=== PATIENT | male | born 1955 | race Caucasian/White ===

== ENCOUNTER 2019-03-05 10:57 | Day surgery (SDC) | payer OTHER ==
[~2019-03-05] VITALS: Ht 182.9 cm; Wt 131.5 kg
[~2019-03-05 10:57] MED LIST: AMOX875 PO; ASCO500 PO; ASPI325 PO; ASPI81CH PO; ATEN50 PO; Flecainide Acet50 MG PO; HYDURE500 PO; IBUP800 PO; LISI5 PO; METO50ER PO; OXYACE5T PO; VIT1CAPS12 PO
--- NOTE | 2019-03-05 12:30 | NUR ---
Ambulatory in Day Surgery History, Chart, Medications and Allergies reviewed before start of procedure.Lungs clear T/O to Auscultation. Patient confirms NPO status and agrees with scheduled surgery. Patient reports completing Chlorhexadine shower X2 prior to admission to hospital.Surgical site prepped with 2% Chlorhexidine cloth wipe.NOSYN AND PERIDEX DONE PER ORTHO PROTOCOL.
--- NOTE | 2019-03-05 18:14 | NUR ---
SUMMARY FAMILY AT BEDSIDE, PT CHEERFUL AND TALKATIVE. CURRENTLY REPORTS NUMBNESS AND DULLED SENSATION FROM MID THIGH DOWN. GROSS MOVEMENT OF BILAT LEGS. PT DENIES ANY PAIN. TAKING FLUID WITHOUT NAUSEA. LEFT KNEE DRESSING DRY AND INTACT. POLAR PACK IN PLACE
--- NOTE | 2019-03-06 04:10 | NUR ---
SHIFT SUMMARY PT A/O X4. HAS BEEN RESTING IN BED THIS SHIFT BUT DID SIT ON SIDE OF BED AND USE URINAL. PAIN MANAGED WITH PO PAIN MED PER ORDERS. TOLERATING PO INTAKE. AQUACEL TO L KNEE CDI. ASSISTED WITH ADL'S PRN.
[2019-03-06 05:02] LABS: BASOPHILS ABSOLUTE AUTO 0.01 K/mm3 (0.00-0.23); BASOPHILS PERCENT AUTO 0 % (0-2); EOSINOPHILS PERCENT AUTO 0 % (0-6); Hemoglobin 14.7 g/dL (13.5-17.5); IMMATURE GRAN ABSOLUTE AUTO 0.05 K/mm3 (0.00-0.10); IMMATURE GRAN PERCENT AUTO 0 % (0-1); LYMPHOCYTES ABSOLUTE AUTO 0.67 K/mm3 (0.84-5.20); LYMPHOCYTES PERCENT AUTO 6 % (21-46); MONOCYTES ABSOLUTE AUTO 0.88 K/mm3 (0.16-1.47); MONOCYTES PERCENT AUTO 8 % (4-13); Mean Corpuscular HGB 40.3 pg (26.0-34.0); Mean Corpuscular Volume 115 fL (80-100); Mean Platelet Volume 8.7 fL (9.1-12.4); NEUTROPHILS ABSOLUTE AUTO 9.58 K/mm3 (1.96-9.15); NEUTROPHILS PERCENT AUTO 86 % (41-73); Platelet Count 278 K/mm3 (150-400); RDW Coefficient Variation 12.1 % (11.7-14.2); Red Blood Cell Count 3.65 M/mm3 (4.30-5.90); White Blood Cell Count 11.19 K/mm3 (4.00-11.30)
[2019-03-06 05:29] LABS: Anion Gap 6 mmol/L (6-16); Blood Urea Nitrogen 21 mg/dL (8-24); CO2, Blood 26 mmol/L (21-32); Calcium, Blood 8.5 mg/dL (8.5-10.1); Chloride, Blood 107 mmol/L (98-108); Creatinine, Blood 0.75 mg/dL (0.60-1.20); Glomerular Filtration Rate >60 (60-); Glucose, Blood 125 mg/dL (70-99); Magnesium, Blood 1.9 mg/dL (1.6-2.4); Potassium, Blood 4.6 mmol/L (3.5-5.5); Sodium, Blood 139 mmol/L (136-145)
--- NOTE | 2019-03-06 06:13 | NUR ---
PT UP TO CHAIR AFTER SHORT WALK WITH MECHANICAL LABORATORY TECHNICIAN. REPORTS NO PAIN AT THIS TIME.
[2019-03-06] MEDS ORDERED: C Complex1000 MG PO (12:53)
[2019-03-06] MEDS ORDERED: ACET500 PO (12:54)
[2019-03-06] MEDS ORDERED: ASPI81CH PO (12:54)
[2019-03-06] MEDS ORDERED: OXYC5 PO (12:55)
--- NOTE | 2019-03-06 14:51 | NUR ---
DISCHARGE SUMMARY PT A&OX4, VSS, LEFT FLOOR VIA WC, WITH ALL PERSONAL POSSESSIONS INCLUDING DISCHARGE PACKET, 1 NARC SCRIPT, POLAR MIL, 2 AQACEL DRESSINGS, TO GO HOME WITH . DC INSTRUCTIONS PROVIDED. PT AND REP UNDERSTANDING THOSE INSTRUCTIONS. IV DC'D.
== END 2019-03-06 15:00 | disposition home or self-care (01) ==
LOC: ORSCMMR 10:57 → ORD 12:30 → ORSCMMR 17:31 → SURS 17:31 → ORSCMMR 03-06 15:00 → SURS 03-06 15:00
PROVIDERS: Orthopaedic Surgery
PROC: 0SRD0J9 Replacement of Left Knee Joint with Synthetic Substitute, Cemented, Open Approach (ICD-10-PCS; principal; 2019-03-05 13:45)
DX: M17.12 Unilateral primary osteoarthritis, left knee (principal); I10 Essential (primary) hypertension; K21.9 Gastro-esophageal reflux disease without esophagitis; I48.91 Unspecified atrial fibrillation; Z79.899 Other long term (current) drug therapy; Z79.82 Long term (current) use of aspirin; Z23 Encounter for immunization
CPT/HCPCS: 36415; 73560-LT; 80048; 83735; 85025; 88300; 90686; 97110; 97116; 97162; C1713; C1776; J0171; J0690; J0735; J1100; J1885; J2250; J2405; J2704; J2795; J3010; J7120

== ENCOUNTER 2022-01-03 06:48 | Day surgery (SDC) | payer OTHER ==
[~2022-01-03] VITALS: Ht 190.5 cm; Wt 141.0 kg
[~2022-01-03 06:48] MED LIST changes: +ACET500 PO; +Acerola C500 MG PO; +C Complex1000 MG PO; +NITR.4SL SL; +OXYC5 PO; +Tambocor100 MG PO
[2022-01-03] MEDS ORDERED: LOSA50 PO (07:25)
[2022-01-03] MEDS ORDERED: IBUP200 PO (07:26)
[2022-01-03] MEDS ORDERED: Lopressor 25 mg25 MG PO (07:26)
--- NOTE | 2022-01-03 10:05 | NUR ---
ASSUMED CARE OF PT. PT AWAKE AND CONVERSING APPROPRIATELY; DENIES CHEST PAIN POST PROCEDURE. MONITOR SB 50'S, B/P 133/87, SPO2 94 RA, AFEBRILE. R RADIAL NO SWELLING/HEMATOMA, TR BAND PLACE; RUE POSITIVE PLEUTH POST TR BAND PLACEMENT. R GROIN NO SWELLING/HEMATOMA, TEGADERM DRSG INTACT; RLE PULSES DP 2+, PT 1+. PT'S AT BEDSIDE, ATTENTIVE.
--- NOTE | 2022-01-03 10:35 | NUR ---
PT HOB ELEVATED, SITE UNCHANGED.
--- NOTE | 2022-01-03 11:35 | NUR ---
EHCO HERE TO PERFORM PT'S ECHOCARDIOGRAM.
--- NOTE | 2022-01-03 13:05 | NUR ---
PT AMB TO BATHROM, GAIT STEADY; SITES UNCHANGED WITH ACTIVITY.
--- NOTE | 2022-01-03 13:10 | NUR ---
PT DRESSED SELF WITHOUT ISSUE, SITES UNCHANGED; TR BAND REMOVED, CLOTH DOT AND WRIST IMMOBILIZER PLACED-IV REMOVED-CANNULA INTACT.
--- NOTE | 2022-01-03 13:19 | NUR ---
PT AND RECEIVED DISCHARGE INSTRUCTIONS, MED LIST AND AFTER CARE INSTRUCTIONS; VERBALIZED GOOD UNDERSTANDING. PT LEFT FACILITY VIA W/C, CONDITION STABLE.
== END 2022-01-03 13:19 | disposition home or self-care (01) ==
LOC: MHTC 06:48
DX: I20.8 Other forms of angina pectoris (principal); R94.39 Abnormal result of other cardiovascular function study; R06.00 Dyspnea, unspecified; R61 Generalized hyperhidrosis; I10 Essential (primary) hypertension; I48.0 Paroxysmal atrial fibrillation; G47.33 Obstructive sleep apnea (adult) (pediatric); K21.9 Gastro-esophageal reflux disease without esophagitis; E66.9 Obesity, unspecified; Z79.82 Long term (current) use of aspirin; Z68.38 Body mass index [BMI] 38.0-38.9, adult
CPT/HCPCS: 93306; 93454; 99152; 99153; C1760; C1769; C1887; C1894; J1644; J2250; J3010; J7030; J7040; J7050; Q9967

== ENCOUNTER 2024-07-16 06:42 | Day surgery (SDC) | payer OTHER ==
[~2024-07-16] VITALS: Ht 184 cm; Wt 134.0 kg
[~2024-07-16 06:42] MED LIST changes: -ACET500 PO; -Acerola C500 MG PO; +Acetaminophen650 M1 PO; +C COMPLEX1000 M1 PO; +ELIQUIS5 M2 PO; +IBUP200 PO; +LOSA50 PO; +Lactated Ringer's 1,000 ML IV SCH; +Lopressor 25 mg25 MG PO
[2024-07-16] MEDS ORDERED: propofoL 20 ML IV ONE ×2 (07:52→07:53)
[2024-07-16 07:56] VITALS: BP 153/87
--- NOTE | 2024-07-16 08:01 | NUR ---
07/16/24 0801 Juan Diego Arango History, Chart, Medications and Allergies reviewed before start of procedure.MONITOR INTACT WITH CONTINUOUS PULSE OXIMETRY, CONTINUOUS END TITAL CO2, 3-LEAD EKG AND INTERMITTENT BLOOD PRESSURE.3-LEAD EKG REVIEWED WITH PHYSICIAN PRIOR TO START OF PROCEDURE.O2 VIA POM INTACT THROUGHOUT SEDATION/PROCEDURE.See Anesthesia record.
--- NOTE | 2024-07-16 08:02 | NUR ---
History, Chart, Medications and Allergies reviewed before start of procedure. Pre-Op teaching done. Pt verbalizes understanding. Patient States Post-Procedure ride home has been arranged.
[2024-07-16 08:45] VITALS: BP 125/86
--- NOTE | 2024-07-16 08:50 | NUR ---
REPORT RECEIVED FROM AVI HERNANDEZ. VSS. PT ON RA. PT A&OX4. PT ABLE TO REPOSITION SELF IN BED. PT REQUESTING PO FLUIDS AND TOLERATING THEM WELL. PT DENIES PAIN, NAUSEA OR OTHER DISCOMFORTS.
[2024-07-16 09:00] VITALS: BP 148/87
[2024-07-16] MEDS ORDERED: Lactated Ringer's 1,000 ML IV ONE (09:35)
== END 2024-07-16 09:10 | disposition home or self-care (01) ==
LOC: ORSCMMR 06:42 → ORD 08:00 → ORSCMMR 08:00
PROVIDERS: Internal Medicine Gastroenterology
PROC: 0DJD8ZZ Inspection of Lower Intestinal Tract, Via Natural or Artificial Opening Endoscopic (ICD-10-PCS; principal; 2024-07-16 08:00)
DX: Z12.11 Encounter for screening for malignant neoplasm of colon (principal); Z86.0101 Personal history of adenomatous and serrated colon polyps; I48.0 Paroxysmal atrial fibrillation; I10 Essential (primary) hypertension; G47.33 Obstructive sleep apnea (adult) (pediatric); E66.9 Obesity, unspecified; Z68.39 Body mass index [BMI] 39.0-39.9, adult; Z79.01 Long term (current) use of anticoagulants; Z79.899 Other long term (current) drug therapy
CPT/HCPCS: J2704; J7120

== ENCOUNTER 2025-02-16 09:50 | Day surgery (SDC) | payer OTHER ==
[~2025-02-16] VITALS: Ht 188 cm; Wt 135.1 kg
[~2025-02-16 09:50] MED LIST changes: -Lactated Ringer's 1,000 ML IV SCH; +Lidocaine 2%-Epineph 1:200000 20 ML SDV ONE
[2025-02-16] MEDS ORDERED: FLUT.05NI (10:43)
[2025-02-16] MEDS ORDERED: Phenylephrine HCl 100 MCG/ML-NS 10MLSYR (1MG/10ML) ONE (12:09)
[2025-02-16] MEDS ORDERED: Ondansetron HCl 2 MG / ML 2ML Vial ONE (12:09)
[2025-02-16] MEDS ORDERED: Rocuronium Bromide 10 MG/ML 5ML Injection IV ONE (12:09)
[2025-02-16] MEDS ORDERED: Dexamethasone Sod Phos 10 MG/ML 1ML VIAL ONE (12:09)
[2025-02-16] MEDS ORDERED: FentaNYL Citrate 50 MCG/ML 2 ML Injection ONE (12:11)
[2025-02-16] MEDS ORDERED: Glycopyrrolate 0.2 MG/ML 5ML VIAL ONE (12:34)
[2025-02-16] MEDS ORDERED: HYDROmorphone HCl/Pf 1MG SYR ONE (13:47)
[2025-02-16] MEDS ORDERED: Sugammadex Sodium 200 MG/2ML SDV (100 MG/ML) ONE (13:48)
[2025-02-16] MEDS ORDERED: Ketorolac Tromethamine 30mg Vial ONE (15:00)
--- NOTE | 2025-02-16 15:00 | NUR ---
02/16/25 Griselda Cantu REPORT GIVEN TO MARY SINGH
[2025-02-16 15:07] VITALS: BP 174/100
== END 2025-02-16 16:10 | disposition home or self-care (01) ==
LOC: ORSCSDS 09:50
PROVIDERS: Otolaryngology
PROC: 0GTK0ZZ Resection of Thyroid Gland, Open Approach (ICD-10-PCS; principal; 2025-02-16 11:30)
DX: E04.2 Nontoxic multinodular goiter (principal); I48.91 Unspecified atrial fibrillation; I10 Essential (primary) hypertension; I25.10 Atherosclerotic heart disease of native coronary artery without angina pectoris; K21.9 Gastro-esophageal reflux disease without esophagitis; E66.9 Obesity, unspecified; Z68.38 Body mass index [BMI] 38.0-38.9, adult; Z79.01 Long term (current) use of anticoagulants; Z79.899 Other long term (current) drug therapy; Z87.891 Personal history of nicotine dependence
CPT/HCPCS: 88307; A9270; J1100; J1171; J1885; J2371; J2405; J2704; J3010; J7120